=== PATIENT | male | born 1940 | race Caucasian/White ===

== ENCOUNTER 2022-04-24 21:43 | Inpatient (IN) ==
[2022-04-25] MEDS ORDERED: Acetaminophen 325 MG TABLET PO PRN ×2 (01:35)
[2022-04-25] MEDS ORDERED: Naloxone 0.4 MG/ML INJ IVP PRN (01:35)
[2022-04-25] MEDS ORDERED: Ondansetron 4 MG/2 ML VIAL IVP PRN (01:35)
[2022-04-25] MEDS ORDERED: 0.9 % Sodium Chloride 1,000 ML IVC SCH ×2 (01:45→02:25)
[2022-04-25 02:51] LABS: Basophils % 0.1 %; Hematocrit 32.2 % (37.5-50.1); Hemoglobin 10.5 g/dL (12.9-16.9); Immature Granulocytes % 0.4 % (0-4); Lymphocytes # 0.3 K/mcL (0.6-4.6); Lymphocytes % 1.7 %; Mean Corpuscular HGB Conc 32.6 g/dL (31.6-35.5); Mean Corpuscular Hemoglobin 28.5 pg (28.0-33.3); Mean Corpuscular Volume 87.3 fL (83.0-100.0); Mean Platelet Volume 8.8 fL (9.4-12.4); Monocytes # 1.1 K/mcL (0.0-1.3); Monocytes % 6.8 %; Neutrophils # 14.6 K/mcL (1.6-8.9); Platelet Count 489 K/mcL (140-400); Red Blood Count 3.69 M/mcL (4.19-5.50); Red Cell Distribution Width 13.8 % (11.5-14.5); White Blood Count 16.1 K/mcL (4.3-11.1)
[2022-04-25 02:57] LABS: INR 1.1; Prothrombin Time 12.8 Seconds (9.4-12.1)
[2022-04-25 03:01] LABS: Activated Partial Thrombo Time 25.1 Seconds (26.0-36.0)
[2022-04-25 03:09] LABS: Calcium 10.5 mg/dL (8.6-10.3); Potassium 6.3 mEq/L (3.5-5.1)
[2022-04-25] MEDS ORDERED: *HR* Dextrose 50 % in Water (Syg) 50 ML SYRINGE IVP ONE (07:40)
[2022-04-25] MEDS ORDERED: Insulin Human Regular 10 UNIT in 0.9 % Sodium Chloride 10 ML IV ONE (07:40)
[2022-04-25] MEDS ORDERED: Calcium Gluconate 1gm/50mL 1 GM/50 ML BAG IVPB ONE (07:45)
[2022-04-25 09:17] LABS: Bacteria,Urine Few per hpf (None-Few); Bilirubin,Urine Negative (Negative); Blood,Urine Large (Negative); Clarity,Urine Turbid (Clear); Color,Urine Yellow (Yellow); Glucose,Urine (UA) Normal (Normal); Ketones,Urine Negative (Negative); Leukocyte Esterase,Urine Trace (Negative); Mucus,Urine Few per lpf (None-Few); Nitrite,Urine Negative (Negative); PH,Urine 5.5 pH Units (5.0-8.0); Protein,Urine 30 mg/dL (Neg-Trace); RBC,Urine TNTC per hpf (0-3); Specific Gravity,Urine 1.018 (1.010-1.025); Urobilinogen,Urine Normal (Normal)
[2022-04-25 09:51] LABS: Amphetamine Screen,Urine Negative ng/mL (Cutoff=1000); Barbiturate Screen,Urine Negative ng/mL (Cutoff=200); Benzodiazepines Screen,Urine Negative ng/mL (Cutoff=200); Cannabinoid Screen,Urine Negative ng/mL (Cutoff = 50); Cocaine Screen,Urine Negative ng/mL (Cutoff= 300); Creatinine,Urine 112 mg/dL; Opiate Screen,Urine Positive ng/mL (Cutoff=300); Phencyclidine Screen,Urine Negative ng/mL (Cutoff=25); Protein/Creatinine Ratio,Urine 0.41 mg/mg (0.00-0.20); Sodium, Urine 19.7 mEq/L
[2022-04-25] MEDS: Sodium Bicarbonate 50 MEQ in 0.45 % Sodium Chloride 1,000 ML IVC SCH ×2 (12:09→22:50)
[2022-04-25 12:44] LABS: Calcium 10.3 mg/dL (8.6-10.3); Potassium 5.1 mEq/L (3.5-5.1)
[2022-04-25 12:48] LABS: Uric Acid 11.2 mg/dL (2.3-7.6)
[2022-04-25 12:51] LABS: Thyroid Stimulating Hormone 4.84 mcIU/mL (0.340-5.600)
[2022-04-25] MEDS ORDERED: D5% in Water 1,000 ML IVC PRN (12:51)
[2022-04-25] MEDS ORDERED: *HR* Dextrose 50 % in Water (Syg) 50 ML SYRINGE IVP PRN (12:51)
[2022-04-25] MEDS ORDERED: Dextrose Gel 15 GM/37.5 ML TUBE PO PRN ×2 (12:51)
[2022-04-25] MEDS ORDERED: predniSONE 20 MG TABLET PO ONE (18:31)
[2022-04-25] MEDS ORDERED: Morphine Sulfate 2 MG/ML SYRINGE IVP ONE (18:31)
[2022-04-25] MEDS: Sennosides/Docusate Sodium TABLET PO SCH (20:56)
[2022-04-25] MEDS: Psyllium 1 PACKET POWD.PACK PO SCH (20:56)
[2022-04-26 07:13] LABS: Hematocrit 27.9 % (37.5-50.1); Hemoglobin 9.2 g/dL (12.9-16.9); Immature Granulocytes % 0.5 % (0-4); Lymphocytes # 0.2 K/mcL (0.6-4.6); Lymphocytes % 3.9 %; Mean Corpuscular Hemoglobin 28.3 pg (28.0-33.3); Mean Corpuscular Volume 85.8 fL (83.0-100.0); Mean Platelet Volume 8.9 fL (9.4-12.4); Monocytes # 0.1 K/mcL (0.0-1.3); Monocytes % 2.4 %; Neutrophils # 5.4 K/mcL (1.6-8.9); Platelet Count 382 K/mcL (140-400); Red Blood Count 3.25 M/mcL (4.19-5.50); Red Cell Distribution Width 13.4 % (11.5-14.5); Segmented Neutrophils % 93.2 %
[2022-04-26 07:15] LABS: White Blood Count 5.8 K/mcL (4.3-11.1)
[2022-04-26 07:33] LABS: Calcium 8.9 mg/dL (8.6-10.3); Magnesium 1.6 mg/dL (1.6-2.6); Potassium 5.4 mEq/L (3.5-5.1)
[2022-04-26 08:57] LABS: Hepatitis B Surface Antigen Nonreactive (Nonreactive)
[2022-04-26 09:26] LABS: Hepatitis C Virus Antibody Nonreactive (Nonreactive)
[2022-04-26] MEDS: Sodium Bicarbonate 50 MEQ in 0.45 % Sodium Chloride 1,000 ML IVC SCH ×2 (09:42→21:42)
[2022-04-26] MEDS: Sennosides/Docusate Sodium TABLET PO SCH ×2 (09:42→21:38)
[2022-04-26] MEDS: Psyllium 1 PACKET POWD.PACK PO SCH ×3 (09:48→21:38)
[2022-04-26] MEDS ORDERED: SODIUM ZIRCONIUM CYCLOSILICATE 5 GM POWD.PACK PO ONE (14:11)
[2022-04-26 16:39] LABS: Hepatitis B Core IgM Nonreactive (Nonreactive)
[2022-04-26 16:42] LABS: Hepatitis A Antibody IgM Nonreactive (Nonreactive)
[2022-04-26] MEDS ORDERED: Melatonin 3 MG TABLET PO PRN (21:11)
[2022-04-27 06:14] LABS: Basophils % 0.1 %; Eosinophils # 0.1 K/mcL (0.0-0.6); Eosinophils % 0.8 %; Hematocrit 26.7 % (37.5-50.1); Hemoglobin 8.8 g/dL (12.9-16.9); Immature Granulocytes % 0.1 % (0-4); Lymphocytes # 0.9 K/mcL (0.6-4.6); Lymphocytes % 11.6 %; Mean Corpuscular Hemoglobin 27.9 pg (28.0-33.3); Mean Corpuscular Volume 84.8 fL (83.0-100.0); Mean Platelet Volume 8.8 fL (9.4-12.4); Monocytes # 1.1 K/mcL (0.0-1.3); Monocytes % 14.3 %; Neutrophils # 5.8 K/mcL (1.6-8.9); Platelet Count 340 K/mcL (140-400); Red Blood Count 3.15 M/mcL (4.19-5.50); Red Cell Distribution Width 13.4 % (11.5-14.5); Segmented Neutrophils % 73.1 %
[2022-04-27 06:39] LABS: BUN/Creatinine Ratio 27 (6-26); Blood Urea Nitrogen 34 mg/dL (8-23); Calcium 8.5 mg/dL (8.6-10.3); Carbon Dioxide 32 mEq/L (23-29); Chloride 94 mEq/L (98-107); Glucose 84 mg/dL (70-105); Magnesium 1.3 mg/dL (1.6-2.6); Osmolality,Calculated 277 (280-300); Phosphorous 2.5 mg/dL (2.7-4.5); Potassium 4.4 mEq/L (3.5-5.1); Sodium 130 mEq/L (136-145); eGFR For African Americans > 60 (> 60); eGFR For Non-African Americans 56 (> 60)
[2022-04-27 07:25] VITALS: O2SAT 94
[2022-04-27] MEDS: Sodium Bicarbonate 50 MEQ in 0.45 % Sodium Chloride 1,000 ML IVC SCH (08:36)
[2022-04-27] MEDS: Psyllium 1 PACKET POWD.PACK PO SCH (08:45)
[2022-04-27] MEDS: Sennosides/Docusate Sodium TABLET PO SCH (08:45)
[2022-04-27 12:12] VITALS: BP 111/56; PULSE 66; TEMP 97.6
== END 2022-04-27 12:45 | DRG 683 ==
LOC: 2ANU → SUATTDRO 04-25 00:09
PROVIDERS: ADMIT Internal Medicine; ATTEND Internal Medicine